=== PATIENT | female | born 1940 | race Caucasian/White ===

== ENCOUNTER → 2016-10-28 | Day surgery (SDC) | payer MEDICARE, BC ==
[~2016-10-28] VITALS: Ht 160 cm; Wt 51.1 kg
[~2016-10-28] MED LIST: B COMPLETE1 EACH PO; CALCIUM-MAGNES1 EAC4 PO; DILAUDID 2MG(HYD2 MG PO; HAIR SKIN NAIL1 EACH PO; LASIX20 MG PO; LEVOTHROID(SYN75 MCG PO; LOMOTIL1 TAB PO; LUTEIN20 MG PO; NEURONTIN400 MG PO; NORVASC10 MG PO; PRED FORTE 1%5 ML OPHTH; TYLENOL EXTRA500 MG PO; VITAMIN D-32000 UNI1 PO; XARELTO10 MG PO; ZESTORETIC 10-1 EACH PO
--- NOTE | ~2016-10-28 | CON ---
PATIENT'S NAME: MEGAN CEJA [facility] AGE: 76 Y [address] ROOM: [place] [address] LOCATION: GEND ADMIT DATE: 10/28/2016 Consultation DISCHARGE DATE: FAMILY PHYSICIAN: Adair Moser MD ATTENDING PHYSICIAN: MIKALA DUQUE DATE OF CONSULTATION: 10/28/2016 REFERRING PHYSICIAN: Keyla Sanchez MD ADDENDUM: Please note that multiple small bulb biopsies were also done in view of the history of chronic diarrhea. MD YAW ALEGRE/modl /[id number] d: 10/28/16 1322 t: 10/28/16 1815, CONSULTATION REPORT
== END ==
LOC: GPOC 10-20 10:00 → GEND 07:23
PROC: 0DB68ZX Excision of Stomach, Via Natural or Artificial Opening Endoscopic, Diagnostic (ICD-10-PCS; principal; 2016-10-28)
PROC: 0DBG8ZX Excision of Left Large Intestine, Via Natural or Artificial Opening Endoscopic, Diagnostic (ICD-10-PCS; 2016-10-28)
PROC: 0DBN8ZX Excision of Sigmoid Colon, Via Natural or Artificial Opening Endoscopic, Diagnostic (ICD-10-PCS; 2016-10-28)
PROC: 0DBF8ZX Excision of Right Large Intestine, Via Natural or Artificial Opening Endoscopic, Diagnostic (ICD-10-PCS; 2016-10-28)
DX: D12.5 Benign neoplasm of sigmoid colon (principal); K57.30 Diverticulosis of large intestine without perforation or abscess without bleeding; K64.8 Other hemorrhoids; K64.4 Residual hemorrhoidal skin tags; K29.50 Unspecified chronic gastritis without bleeding; E03.9 Hypothyroidism, unspecified; Z79.899 Other long term (current) drug therapy; Z96.643 Presence of artificial hip joint, bilateral; Z98.890 Other specified postprocedural states
CPT/HCPCS: J2001; J7030